=== PATIENT | female | born 1955 | race Caucasian/White ===

== ENCOUNTER 2019-08-17 09:38 | Emergency (ER) | payer MEDICARE, OTHER ==
[2019-08-17] MEDS ORDERED: LEVOTHYROXIN25 MC1 PO (10:06)
[2019-08-17] MEDS ORDERED: ALENDRONATE35 MG PO (10:06)
[2019-08-17 10:30] VITALS: BP 119/74
== END 2019-08-17 10:46 | disposition home or self-care (01) ==
LOC: ED 09:38
DX: S82.034A Nondisplaced transverse fracture of right patella, initial encounter for closed fracture (principal); W01.0XXA Fall on same level from slipping, tripping and stumbling without subsequent striking against object, initial encounter; Y92.009 Unspecified place in unspecified non-institutional (private) residence as the place of occurrence of the external cause
CPT/HCPCS: L1830